=== PATIENT | female | born 1950 | race Caucasian/White ===

== ENCOUNTER → 2018-05-08 | Outpatient (CLI) | payer MEDICARE ==
--- NOTE | 2018-05-08 11:38 | RAD ---
CLINICAL INDICATION: LEFT BREAST BIOPSY; MASS 300 6 CM FN PRE-PROCEDURAL CONSULTATION: Details of the procedure and possible limitations and complications were discussed with the patient. After addressing her questions and concerns, written informed consent was obtained. A time out was then taken to verify patient's name and date of as well as site and laterality. PROCEDURE: The mass at the 3 o'clock position within the left breast was targeted under ultrasound. The skin of the left breast was cleansed and prepped in the typical sterile fashion. 7 cc of 1% lidocaine was used for local anesthesia. A small skin incision was then made to permit passage of a 14 gauge spring activated biopsy device. 4 core specimens were obtained. A clip was then deployed at the biopsy site. Hemostasis was achieved. The patient tolerated the procedure well with no immediate complications. Post-procedural digital mammographic imaging of the left breast demonstrate the clip in appropriate position. IMPRESSION: Successful ultrasound guided core needle biopsy of a mass at the 3 o'clock position within the left breast. Pathology is pending.
--- NOTE | 2018-05-11 16:08 | PATHOLOGY ---
[facility] Accession Number: [id number] . 01 Material submitted: . LEFT BREAST MASS . 01 Clinical history: . Left breast mass 1.5 cm . 02 Diagnosis: Breast tissue, left breast mass needle biopsies: - INVASIVE DUCTAL CARCINOMA, HISTOLOGIC GRADE 2. (JPM:lori; 05/11/2018) QMS/05/11/2018 . 02 Comment: Sections of the left breast mass needle biopsies reveal an invasive mammary carcinoma. The tumor shows focal tubule formation, moderate nuclear pleomorphism, and moderate mitotic activity. The central portion of the tumor shows focal dense sclerosis. Tumor focally infiltrates fatty tissue. The invasive tumor measures up to 1.2 cm in greatest dimension on the glass slide. There are no tumor associated calcifications. There is no lymphovascular tumor invasion. The morphologic findings are supportive of the diagnosis of an invasive ductal carcinoma, histologic grade 2. Breast prognostic studies will be obtained, the results of which will be reported separately. The case is also examined by Dr. Jameel Anthony, who concurs with the diagnosis.The results are reported to Dr. Rocha on 05/11/18 at 3:00 PM. (JPM:lori; 05/11/2018) . 02 Electronically signed: . Axel Rodriguez MD, Pathologist NPI- [id number] . 01 Gross description: . Received in formalin labeled "Ifeanyi Rose, left breast," are multiple needle cores of yellow-carter fibrofatty tissue measuring 1.5 x 0.6 x 0.2 cm in aggregate dimensions. The tissue submitted in its entirety in cassette A1 through A3. The cold ischemic time is 5 minutes. The total formalin fixation time is 12 hours and 43 minutes. (TSD; 05/08/2018) TOB/TOB . 02 Pathologist provided ICD-10: C50.912 . 02 CPT . 837818 Performed at: 01 [facility] [address] [facility] [address], [place] [id number] MD Hermelindo Toledo MD Phone: [phone] Performed at: 02 [facility] [address] [place], [place] [id number] MD Axel Rodriguez MD Phone: [phone]
== END | disposition home or self-care (01) ==
LOC: US 08:08
PROVIDERS: ATTEND Surgery
DX: C50.912 Malignant neoplasm of unspecified site of left female breast (principal)
CPT/HCPCS: 19083; 77065; 88305; 88361; C1713; 76942

== ENCOUNTER → 2018-05-27 | Outpatient (CLI) | payer MEDICARE ==
[~2018-05-27] MED LIST: OXYC1TAB7 PO
[2018-05-27 14:28] LABS: BASO # 0.1 x10^3/uL (0.0-0.2); BASO % 1 % (0-3); EOS # 0.2 x10^3/uL (0.0-0.7); EOS % 2 % (0-3); HEMATOCRIT 44.4 % (36.0-47.0); HEMOGLOBIN 14.8 g/dL (12.0-15.5); LYMPH # 1.7 x10^3/uL (1.0-4.8); LYMPH % 24 % (24-48); MEAN CORPUSCULAR HEMOGLOBIN 27 pg (25-35); MEAN CORPUSCULAR HGB CONC 33 g/dL (31-37); MEAN CORPUSCULAR VOLUME 81 fL (79-100); MONO # 0.5 x10^3/uL (0.0-1.1); MONO % 7 % (0-9); NEUT # 4.7 x10^3uL (1.8-7.7); NEUT % 67 % (31-73); PLATELET COUNT 197 x10^3/uL (140-400); RED BLOOD COUNT 5.49 x10^6/uL (3.50-5.40); RED CELL DISTRIBUTION WIDTH 13.5 % (11.5-14.5); WHITE BLOOD COUNT 7.1 x10^3/uL (4.0-11.0)
[2018-05-27 14:30] LABS: CALCIUM 9.5 mg/dL (8.5-10.1); CREATININE 1.2 mg/dL (0.6-1.0); GFR 44.8; POTASSIUM 3.8 mmol/L (3.5-5.1)
== END | disposition home or self-care (01) ==
LOC: SURGPAT 13:25
PROVIDERS: ATTEND Surgery
DX: Z01.818 Encounter for other preprocedural examination (principal); C50.911 Malignant neoplasm of unspecified site of right female breast; G43.909 Migraine, unspecified, not intractable, without status migrainosus; Z80.3 Family history of malignant neoplasm of breast
CPT/HCPCS: 36415; 80048; 84075; 85025

== ENCOUNTER 2018-06-01 06:10 | Inpatient (IN) | payer MEDICARE ==
[2018-06-01] VITALS (11 sets, daily range): BP systolic 131–156; BP diastolic 62–76
[~2018-06-01] VITALS: Ht 170.2 cm; Wt 108.0 kg
[2018-06-01] MEDS ORDERED: ISOSULFAN BLUE 50 MG/5 ML VIAL. SQ ONE (06:26)
[2018-06-01] MEDS ORDERED: METHYLENE BLUE 1% 10 ML VIAL. ONE (06:26)
[2018-06-01] MEDS ORDERED: BUPIVACAINE-EPI 0.5%-1:200000 50 ML VIAL. ONE (06:26)
[2018-06-01] MEDS ORDERED: MORPHINE SULFATE 2 MG/ML VIAL. IV PRN ×2 (07:00→09:30)
[2018-06-01] MEDS ORDERED: ONDANSETRON PF 4 MG/2 ML VIAL. IV PRN ×2 (07:00→09:30)
[2018-06-01] MEDS ORDERED: IV RINGERS,LACTATED 1000ML 1,000 ML IV SCH (07:00)
[2018-06-01] MEDS ORDERED: PROCHLORPERAZINE 10 MG/2 ML VIAL. IV PRN (07:00)
[2018-06-01] MEDS ORDERED: fentaNYL PF VIAL 100 MCG/2 ML VIAL IV PRN (07:00)
[2018-06-01] MEDS ORDERED: LIDOCAINE 1% PF 2 ML VIAL. ID PRN (07:00)
[2018-06-01] MEDS ORDERED: HYDROmorphone 2 MG/ML VIAL IV PRN (07:00)
[2018-06-01] MEDS ORDERED: LIDOCAINE WITH 8.4% SOD BICARB 3 ML DISP.SYRIN. INJ ONE (07:15)
[2018-06-01] MEDS ORDERED: MIDAZOLAM HCL/PF 2 MG/2 ML VIAL. ONE (07:34)
[2018-06-01] MEDS ORDERED: PROPOFOL 20 ML IV ONE (07:35)
[2018-06-01] MEDS ORDERED: SEVOFLURANE > 120 MINUTES. IH ONE (07:35)
[2018-06-01] MEDS ORDERED: DEXAMETHASONE SOD PHOS 20 MG/5 ML VIAL. ONE (07:35)
[2018-06-01] MEDS ORDERED: KETOROLAC 30 MG/ML INJ FOR OR. INJ ONE (07:35)
[2018-06-01] MEDS ORDERED: ONDANSETRON PF 4 MG/2 ML VIAL. ONE (07:35)
[2018-06-01] MEDS ORDERED: FAMOTIDINE 20 MG/2 ML VIAL ONE (07:35)
[2018-06-01] MEDS ORDERED: oxyCODONE/APAP 5/325 1 TAB TABLET PO PRN ×2 (09:30)
[2018-06-01] MEDS ORDERED: diphenhydrAMINE 50 MG/ML VIAL IV PRN (09:30)
[2018-06-01] MEDS ORDERED: diphenhydrAMINE HCL 25 MG CAPSULE PO PRN (09:30)
[2018-06-01] MEDS ORDERED: 0.9 % SODIUM CHLORIDE 10 ML DISP.SYRIN. IV PRN (09:30)
--- NOTE | 2018-06-01 09:37 | PDOC ---
BRIEF OPERATIVE NOTE Date: Jun 01, 2018 Pre-Op Diagnosis invasive carcinoma left breast Post-Op Diagnosis same Procedure Performed left simple mastectomy Surgeon Aj Entry Level Assistant Manager Zeferino JOYNER Anesthesia Type: General Blood Loss 25cc IV Fluid 1200cc Specimens Obtained left breast and low axillary contents Findings no discernible SLN, activity in lower axillary tissue Complications none Operative Note Wk # [id number] JAYANT GILMORE MD Jun 01, 2018 09:37
[2018-06-01] MEDS: fentaNYL PF VIAL 100 MCG/2 ML VIAL IV PRN ×4 (09:47→10:36)
--- NOTE | 2018-06-01 10:44 | RAD ---
Left breast radionuclide sentinel node localization, 06/01/2018: HISTORY: Breast cancer Under aseptic conditions and utilizing ethyl chloride spray for topical anesthesia, 0.9 millicurie of filtered technetium 99m sulfur colloid mixed with 0.5 cc of 1 percent buffered lidocaine was injected subdermally in the periareolar region in 4 divided doses. No imaging was performed. The patient was sent to surgery in good condition. Electronically signed by: Ho Moeller MD (06/01/2018 10:41 AM) [facility]
[2018-06-01] MEDS: POTASSIUM CL 20MEQ-0.45% NACL 1,000 ML IV SCH ×2 (11:05→21:01)
--- NOTE | 2018-06-01 11:30 | OP ---
DATE OF SURGERY: 06/01/2018 PREOPERATIVE DIAGNOSIS: Invasive carcinoma, left breast. POSTOPERATIVE DIAGNOSIS: Invasive carcinoma, left breast. PROCEDURE: Left simple mastectomy. SURGEON: Chase Gilmore MD SUPERVISOR PAINTING SHIPYARD: AR Tolbert ANESTHESIA: General LMA. ESTIMATED BLOOD LOSS: 25 mL. IV FLUID: 1200 mL. INDICATIONS: The patient is a 67-year-old with biopsy-proven invasive carcinoma of the left breast, brought for simple mastectomy. OPERATIVE REPORT: The patient brought to the Operating Suite having gone to ____ for injection to assist in sentinel lymph node biopsy. A general LMA administered in the left breast, arm and chest, were prepped and draped in usual sterile fashion. 5 mL of Lymphazurin were injected intradermally circumareolarly in the quadrant corresponding to the primary tumor. The breast was gently massaged for 5 minutes. A marking pen was used to outline skin incisions and the superior skin incision was made and a flap developed with cautery dissection. We carried our dissection up into the axilla where just into the axillary tail was activity by the C-Trak probe; however, no blue staining was seen. Some tissue was harvested that did not contain a node. In light of this, I elected to sweep the lower axillary contents out that contained the C-Trak activity out with the breast itself. The inferior skin flap was incised and developed with cautery dissection. The breast freed from the chest wall and passed off as a specimen. Wound checked for hemostasis when present and a correct sponge count was obtained. Two 19-Georgian round Austen drains were placed, the lateral drain in the axilla, the medial drain under the superior skin flap. We again checked for hemostasis and when present and a second sponge count was correct. The wound was closed with interrupted inverted 3-0 Vicryl in the subcutaneous tissue, subcuticular 4-0 Monocryl for the skin. Xeroform, 4 x 4s, Medipore tape for dressings. The patient awakened from her anesthetic and taken to the recovery room in satisfactory condition. CHASE GILMORE MD DR: TIMOTHY/miko JOB#: [id number] / [id number]
[2018-06-01] MEDS ORDERED: METOCLOPRAMIDE HCL 10 MG/2 ML VIAL. IV ONE (12:00)
[2018-06-01] MEDS: DOCUSATE SODIUM 100 MG CAPSULE. PO SCH (21:00)
[2018-06-01] MEDS: ENOXAPARIN 40 MG/0.4 ML SYRINGE. SQ SCH ×2 (21:00→21:08)
[2018-06-02 03:00] VITALS: BP 154/70
[2018-06-02] MEDS: POTASSIUM CL 20MEQ-0.45% NACL 1,000 ML IV SCH ×2 (04:49→15:21)
[2018-06-02 07:00] VITALS: BP 111/53
[2018-06-02] MEDS: DOCUSATE SODIUM 100 MG CAPSULE. PO SCH (09:00)
--- NOTE | 2018-06-02 09:17 | PDOC ---
SURGICAL PROGRESS NOTE Subjective some nausea, light sensitivity and headache this AM--sometimes occasional migraines Tolerating diet pain managed Vital Signs Vital Signs Date Time Temp Pulse Resp B/P (MAP) Pulse Ox O2 Delivery O2 Flow Rate FiO2 06/02/18 07:00 97.5 78 16 111/53 (72) 94 Room Air 97.5 06/02/18 03:00 2.0 I&O Intake and Output 06/02/18 07:00 Intake Total 3500 ml Output Total 1094 ml Balance 2406 ml Intake Oral 0 ml IV Total 3500 ml Output Urine Total 750 ml Emesis 150 ml Drainage Total 169 ml Estimated Blood Loss 25 ml General: Alert, Oriented X3, Cooperative, No acute distress Skin: Other (left breast dressing dry, jps serosang) Assessment/Plan s/p lap simple mastectomy drain teaching plan home if feeling better after lunch NAIDA CASTANEDA APRN Jun 02, 2018 09:17
--- NOTE | 2018-06-02 09:19 | DISCH ---
DISCHARGE INSTRUCTIONS Condition on Discharge Condition on Discharge: Stable Activity After Discharge Activity Instructions for Disc: Activity as tolerated, Progressive ambulation Bathing Instructions: Shower-keep dressing dry Lifting Instructions after Dis: No heavy lifting, No pulling or pushing Exercise Instruction after Dis: Progress as tolerated Driving Instructions after Dis: Do not drive Diet after Discharge Diet after Discharge: Regular Wound Incision Care Wound/Incision Care: Change dressing, May get incision wet Other wound/incision instructi: drain care as instructed Follow-Up Follow up with: Dr Rocha, 1 week, call to schedule [phone] NAIDA CASTANEDA APRN Jun 02, 2018 09:19
[2018-06-02] MEDS ORDERED: OXYC1TAB7 PO (09:20)
[2018-06-02 11:00] VITALS: BP 97/47
[2018-06-02 15:00] VITALS: BP 111/69
--- NOTE | 2018-06-02 16:55 | PDOC3 ---
Discharge Summary Visit Information Date of Admission: Jun 01, 2018 Date of Discharge: Jun 02, 2018 Admitting Diagnosis Comment: invasive carcinoma left breast Final Diagnosis same Brief Hospital Course Allergies Allergies Coded Allergies Type Severity Reaction Last Updated Verified No Known Drug Allergies 06/01/18 No Vital Signs Vital Signs Date Time Temp Pulse Resp B/P (MAP) Pulse Ox O2 Delivery O2 Flow Rate FiO2 06/02/18 15:00 98.2 73 16 111/69 (83) 92 Room Air 98.2 06/02/18 03:00 2.0 Brief Hospital Course Ms. Rose is a 67 old female who presented with biopsy proven invasive carcinoma, left breast. She underwent a simple mastectomy with axillary sampling. She did well and went home on her first post op day Discharge Information Condition at Discharge: Stable Follow Up: As Needed Scheduled PRN Oxycodone Hcl/Acetaminophen (Oxycodone-Acetaminophen 5-325) 1 Each Tablet, 1 TAB PO PRN Q4HRS PRN for MILD PAIN, 1ST CHOICE, #30 Ref 0 Prescribed by: Laura Alfaro on 06/02/18 0920 Miscellaneous Medications Info (No Known Medications Prior To Admisstion) Each, 1 EACH MC, (Reported) Entered as Reported by: TANYA VIERA on 05/27/18 1349 Last Action: Reviewed on 06/01/18 1647 by JAYANT NUNEZ MD Jun 02, 2018 16:55
== END 2018-06-02 18:00 | disposition home or self-care (01) | DRG 583 ==
LOC: OPSVCIP 06:10 → 4 NORTH 10:55
PROVIDERS: ADMIT Surgery; ATTEND Surgery
PROC: 0HBU0ZZ Excision of Left Breast, Open Approach (ICD-10-PCS; principal; 2018-06-01 08:00)
DX: C50.912 Malignant neoplasm of unspecified site of left female breast (principal); G43.909 Migraine, unspecified, not intractable, without status migrainosus; Z80.3 Family history of malignant neoplasm of breast
CPT/HCPCS: 38792; 96374; A7015; A9541; J0690; J1100; J1650; J1885; J2250; J2270; J2405; J2704; J2765; J3010; J7120; Q9968; S0028

== ENCOUNTER → 2019-07-27 | Outpatient (CLI) | payer MEDICARE ==
[~2019-07-27] MED LIST changes: +CONTRAST GIVEN. MC PRN; +IOHEXOL 240 MG/ML 50ML VIAL. PO ONE
--- NOTE | 2019-07-27 16:56 | RAD ---
EXAM: Nuclear bone scan. HISTORY: Breast cancer. COMPARISON: CT obtained on the same date. TECHNIQUE: Following the intravenous injection of 22 mCi of Tc 99m labeled methylene diphosphonate (MDP), whole body imaging was performed. FINDINGS: There is expected radiotracer activity within the renal collecting system. There is a small focus of increased radiotracer activity within the left lateral mid cervical spine which may be related to facet arthropathy. There is also suspected degenerative activity involving the shoulders and feet and knees. IMPRESSION: 1. Small focus of increased tracer activity within the left lateral mid cervical spine, possibly associated with facet arthropathy. Correlate with radiographs. 2. Suspected degenerative activity involving the shoulders, knees and feet. There is no convincing evidence of metastatic disease. Electronically signed by: Aylin Jacob MD (07/27/2019 4:53 PM) [facility]
--- NOTE | 2019-07-27 17:13 | RAD ---
EXAM: CT OF THE CHEST, ABDOMEN AND PELVIS WITHOUT CONTRAST. HISTORY: Left breast cancer. TECHNIQUE: Computed tomography of the chest, abdomen and pelvis was performed without intravenous contrast. COMPARISON: 12/05/2004. FINDINGS: Bone windows reveal no suspicious lesions. There is a moderate superior endplate compression fracture at L4. There are changes of left mastectomy. There are no pathologically enlarged mediastinal or axillary lymph nodes. Calcified mediastinal lymph nodes are likely secondary to old granulomatous disease. There is no pleural or pericardial effusion. The heart is not enlarged. There are atherosclerotic calcifications of the coronary arteries. The right hemidiaphragm is moderately elevated. There is atelectasis in the right base. The right middle lobe is mostly atelectatic. The right middle lobe bronchus is narrowed at its origin. There is a calcified granuloma in the right upper lobe. An uncalcified nodule along the left major fissure on image 11 measures only 3 mm most likely represents a benign intrafissural lymph node and is stable chronically. Diffuse hepatic steatosis is moderate to severe. The gallbladder is surgically absent. There are calcified granulomas in the spleen. The adrenal glands and pancreas are unremarkable without contrast. Cortical scarring along with kidney results in overall moderate atrophy. The right kidney is unremarkable. There are no pathologically enlarged lymph nodes. The uterus is surgically absent. The appendix is not enlarged. There is no small bowel obstruction. IMPRESSION: 1. Status post left mastectomy. No evidence of recurrent or metastatic disease. 2. Elevation of the right hemidiaphragm with right basilar atelectasis. There appears to be some stenosis at the origin of the right middle lobe bronchus without an associated mass. Correlate for a component of fibrosing mediastinitis. 3. Moderate to severe diffuse hepatic steatosis. 4. Left renal cortical scarring and moderate atrophy. *One or more of the following individualized dose reduction techniques were utilized for this examination: 1. Automated exposure control. 2. Adjustment of the mA and/or kV according to patient size. 3. Use of iterative reconstruction technique. Electronically signed by: Kimberly Howard MD (07/27/2019 5:10 PM) [facility]
== END | disposition home or self-care (01) ==
LOC: NM 09:30
PROVIDERS: ATTEND Internal Medicine Hematology & Oncology
DX: K76.0 Fatty (change of) liver, not elsewhere classified (principal); C50.812 Malignant neoplasm of overlapping sites of left female breast; M48.56XA Collapsed vertebra, not elsewhere classified, lumbar region, initial encounter for fracture; I25.10 Atherosclerotic heart disease of native coronary artery without angina pectoris; J98.11 Atelectasis; J84.10 Pulmonary fibrosis, unspecified; R91.1 Solitary pulmonary nodule; D73.89 Other diseases of spleen; J98.4 Other disorders of lung; N26.1 Atrophy of kidney (terminal); Z90.12 Acquired absence of left breast and nipple
CPT/HCPCS: 71250; 74176; 78306; A9503